=== PATIENT | female | born 2000 | race African-American/Black ===

== ENCOUNTER 2021-06-17 21:52 | Emergency (ER) | payer OTHER, SELFPAY ==
[2021-06-17 22:00] VITALS: BP 106/64; PULSE 105; RESP 18; TEMP 36.9; O2SAT 98
== END 2021-06-18 03:28 | disposition left against medical advice (07) ==
DX: Z53.21 Procedure and treatment not carried out due to patient leaving prior to being seen by health care provider (principal)
CPT/HCPCS: 99199